=== PATIENT | female | born 1950 | race Hispanic/Latino ===

== ENCOUNTER 2023-06-22 17:35 | Emergency (ER) | payer OTHER, SELFPAY ==
[2023-06-22 17:50] VITALS: BP 148/78; PULSE 69; RESP 18; TEMP 36.8; O2SAT 97
--- NOTE | 2023-06-22 18:30 | ED.WOUNDLAC ---
HPI - Wound/Laceration General Chief Complaint: Extremity Injury, Lower Stated Complaint: Right Foot Pain Time Seen by Provider: 06/22/23 17:53 Source: patient, RN notes reviewed and sales stock associate Mode of arrival: ambulatory Limitations: no limitations History of Present Illness HPI narrative: Patient presents today complaining of a wound to the dorsum of her right foot x2 months. States she was in [place] a few months ago and sustained very large splinters to the dorsum of her foot from some sugar cane. She went to a doctor there, several blisters were removed after an x-ray was taken, and she was placed on some antibiotics. States that she is still having pain and has a wound to this area and would like it evaluated. Related Data Allergies Allergy/AdvReac Type Severity Reaction Status Date / Time Penicillins Allergy Intermediate Rash Verified 06/22/23 19:19 Review of Systems Review of Systems: CONSTITUTIONAL: Denies body aches, fever, chills, or sweats. EYES: Denies visual changes, redness, or discharge. ENT: Denies rhinorrhea, congestion, sore throat, or otalgia. CARDIOVASCULAR: Denies chest pain, palpitations, or edema. RESPIRATORY: Denies cough or dyspnea. GASTROINTESTINAL: Denies abdominal pain, nausea, vomiting, or diarrhea. GENITOURINARY: Denies dysuria or hematuria. SKIN: + foot wound MUSCULOSKELETAL: Denies back pain, joint pain, or myalgia. NEUROLOGIC: Denies headache, numbness, tingling, or weakness. PSYCH: Denies depression or anxiety. [facility] Past Medical History Medical History (Updated 06/22/23 @ 19:58 by Esther Chahal, [facility], ) Seizures Comments At time of signature, I have reviewed and agree with nursing past medical, surgical, social and family history unless otherwise noted. Please see nursing chart for further information. There is no relevant family history pertinent to the presenting complaint Exam Narrative: GENERAL: Well-appearing, well-nourished, and in no acute distress. HEAD: Normocephalic, atraumatic. EYES: EOMI. No redness or drainage. Conjunctivae normal. ENT: Mucous membranes pink and moist. NECK: Normal AROM. CHEST: No respiratory distress. EXTREMITIES: Normal range of motion. No edema. SKIN: Warm, dry, no rash. Capillary refill normal. Normal skin turgor. Patient has an approximately 1.5 x 1 cm sq scab to the dorsum of her right foot surrounded by some mild fluctuance and ecchymosis measuring approximately 3-4 cm round. This area is mildly tender to palpation. Distal sensation intact. Capillary refill normal. Pedal pulse normal. Full range of motion of the toes and ankle. NEURO: No focal deficits. Alert and oriented x3. Gait steady. PSYCH: Normal affect. No signs of depression or anxiety. Course Course Level of Care: Express Care Visit Vital Signs Vital signs: Vital Signs Temperature 98.2 F 06/22/23 17:50 Pulse Rate 69 06/22/23 17:50 Respiratory Rate 18 06/22/23 17:50 Blood Pressure 148/78 H 06/22/23 17:50 Pulse Oximetry 97 06/22/23 17:50 Oxygen Delivery Room Air 06/22/23 17:50 Temperature 98.2 F 06/22/23 17:50 Pulse Rate 69 06/22/23 17:50 Respiratory Rate 18 06/22/23 17:50 Blood Pressure 148/78 H 06/22/23 17:50 Pulse Oximetry 97 06/22/23 17:50 Oxygen Delivery Room Air 06/22/23 17:50 Reviewed MDM - Wound/Laceration MDM Narrative Medical decision making narrative: Patient states she believe she has more splinters in her foot. Recommend removing the large scab to see if there is purulent discharge or more splinters. Patient states she is scared of needles and is unsure if she wants to be numbed and have this taking care of today after the procedure was explained to her. Choice was given to her to have it looked at today or be referred to a farm management teacher. Patient put her shoe back on and did not firmly make a decision, but then sat quiet. I took that to mean she did not want to have this taking care of today
== END 2023-06-22 18:42 | disposition home or self-care (01) ==
PROVIDERS: Emergency Provider Nurse Practitioner; PCP Registered Nurse
DX: S99.921A Unspecified injury of right foot, initial encounter (principal); X58.XXXA Exposure to other specified factors, initial encounter
CPT/HCPCS: 99212; G0463

== ENCOUNTER 2023-06-28 18:51 | Emergency (ER) | payer OTHER, SELFPAY ==
--- NOTE | ~2023-06-28 | XR_ITS ---
EXAMINATION: XR knee LT 3V DATE: 06/28/2023 22:30 INDICATION: Left knee pain. TECHNIQUE: 3 views of left knee were obtained. COMPARISON: None. FINDINGS: Bone alignment is normal. No fracture. There is mild tricompartmental osteoarthritis charac terized by tiny osteophytes. There is chondrocalcinosis of medial meniscus. No knee joint effusion. IMPRESSION: 1. Mild left knee osteoarthritis. Reviewed, dictated and finalized at location E. [employer]
--- NOTE | ~2023-06-28 | XR_ITS ---
EXAMINATION: XR foot RT min 3V DATE: 06/28/2023 22:30 INDICATION: Right foot foreign body. TECHNIQUE: 3 views of right foot were obtained. COMPARISON: None. FINDINGS: Bone alignment is normal. No acute fracture. There is an old healed fracture of neck of thi rd metatarsal. There is mild osteoarthritis of first metatarsophalangeal joint and some of the interp halangeal joints. There is an enthesophyte at plantar aspect of calcaneal tuberosity. IMPRESSION: 1. No radiopaque foreign body. 2. Mild polyarticular osteoarthritis. Reviewed, dictated and finalized at location E. COUNSELOR
[2023-06-28 19:04] VITALS: BP 154/80; PULSE 82; RESP 16; TEMP 36.5; O2SAT 97
[2023-06-28 22:00] VITALS: BP 154/70; PULSE 67; RESP 18; O2SAT 98
--- NOTE | 2023-06-28 22:09 | ED.GENADULT ---
HPI - General Adult General Chief complaint: Unspecified <Biranna Aquino PA-C - Last Filed: 06/29/23 02:14> Stated complaint: splinter in R foot, R knee pain <Brianna Aquino PA-C - Last Filed: 06/29/23 02:14> Time Seen by Provider: 06/28/23 21:35 <Brianna Aquino PA-C - Last Filed: 06/29/23 02:14> History of Present Illness HPI narrative: 72-year-old Kazakh-speaking female presents with her granddaughter at bedside for right foot pain. Granddaughter assist with history. States the patient had a splinter in the dorsum of her right foot approximately 1 and half months ago. States she took this bladder output please or retained products. She went to urgent care a week ago when she began having pain in this area, had x-rays performed was told there was foreign bodies. States they offered to try to remove them however the patient declined. She presents today because now there is worsening swelling and pain to this area. Denies fever, nausea or vomiting, spontaneous drainage. She is also stating that she has left knee pain that has been present for quite a while however the past day it has worsened and now is swollen to the medial aspect of her knee. Denies injury or trauma. <Brianna Aquino PA-C - Last Filed: 06/29/23 02:14> Related Data Allergies/adverse reactions: Allergies Allergy/AdvReac Type Severity Reaction Status Date / Time Penicillins Allergy Rash Verified 06/28/23 23:12 <Brianna Aquino PA-C - Last Filed: 06/29/23 02:14> Review of Systems Review of Systems: CONSTITUTIONAL: Denies fever, chills, or sweats. EYES: Denies visual changes, redness, or discharge. ENT: Denies rhinorrhea, congestion, sore throat, or otalgia. CARDIOVASCULAR: Denies chest pain, palpitations, or edema. RESPIRATORY: Denies cough or dyspnea. GASTROINTESTINAL: Denies abdominal pain, nausea, vomiting, or diarrhea. GENITOURINARY: Denies dysuria or hematuria. SKIN: See HPI MUSCULOSKELETAL: See HPI NEUROLOGIC: Denies headache, numbness, or weakness. PSYCHIATRIC: Denies anxiety or depression. <Brianna Aquino PA-C - Last Filed: 06/29/23 02:14> Exam Narrative: GENERAL: Well-appearing, well-nourished, and in no acute distress. HEAD: Normocephalic, atraumatic. NECK: Supple. CHEST: Clear to auscultation. No respiratory distress. HEART: Regular rate and rhythm. No murmur heard. Normal peripheral pulses. ABDOMEN: Soft, nontender, nondistended, normal active bowel sounds. EXTREMITIES: Tenderness and mild edema to the medial aspect of the knee with full active and passive range of motion. No warmth or erythema. DP pulse 2 +. Sensation intact. SKIN: 2 cm area of edema to the dorsum of the right foot overlying the 1st and 2nd metatarsals with a central 0.5 cm area of green xerotic skin. Mild medial erythema. There is no warmth, fluctuance, induration or crepitus. NEURO: No focal deficits. Alert and oriented x3 <Brianna Aquino PA-C - Last Filed: 06/29/23 02:14> Course AUTO RADIATOR MECHANIC/PA Physician Supervision For this patient encounter, I reviewed the AUTO RADIATOR MECHANIC or PA documentation, treatment plan, and medical decision making and/or I had [id number] time with this patient. I performed all aspects of the MDM as documented. <Tayler Merrill MD - Last Filed: 07/03/23 19:27> Vital Signs Vital signs: Vital Signs Temperature 97.7 F 06/28/23 19:04 Pulse Rate 82 06/28/23 19:04 Respiratory Rate 16 06/28/23 19:04 Blood Pressure 154/80 H 06/28/23 19:04 Pulse Oximetry 97 06/28/23 19:04 Oxygen Delivery Room Air 06/28/23 19:04 Temperature 97.7 F 06/28/23 19:04 Pulse Rate 67 06/28/23 22:00 Respiratory Rate 18 06/28/23 22:00 Blood Pressure 154/70 H 06/28/23 22:00 Pulse Oximetry 98 06/28/23 22:00 Oxygen Delivery Room Air 06/28/23 19:04 <Brianna Aquino PA-C - Last Filed: 06/29/23 02:14> Vital Signs Temperature 97.7 F 06/28/23 19:04 Pulse Rate
[2023-06-28] MEDS: CEPHALEXIN 500 MG CAPSULE PO (23:13)
[2023-06-28] MEDS: ACETAMINOPHEN 500 MG TABLET 1000 MG PO (23:13)
== END 2023-06-28 23:19 | disposition home or self-care (01) ==
PROVIDERS: Emergency Provider Physician Assistant
DX: S91.341A Puncture wound with foreign body, right foot, initial encounter (principal); M25.562 Pain in left knee; W45.8XXA Other foreign body or object entering through skin, initial encounter
CPT/HCPCS: 73562; 73630; 99284; A9270